=== PATIENT | female | born 1985 | race Caucasian/White ===

== ENCOUNTER 2021-07-01 22:22 | Emergency (ER) | payer OTHER ==
[2021-07-02] MEDS ORDERED: PERCOCET 5-3251 EACH PO (01:11)
[2021-07-02] MEDS ORDERED: ONDANSETRON ODT4 MG PO (01:11)
== END 2021-07-02 01:25 | disposition home or self-care (01) ==
LOC: FER 22:22
DX: N90.7 Vulvar cyst (principal); F17.210 Nicotine dependence, cigarettes, uncomplicated
CPT/HCPCS: 99282